=== PATIENT | male | born 1980 | race Hispanic/Latino ===

== ENCOUNTER 2019-03-10 20:53 | Emergency (ER) | payer SELFPAY ==
[2019-03-10] MEDS ORDERED: TETANUS & DIPHTHERIA TOX,ADULT 0.5 ML VIAL ONE (21:15)
[2019-03-10] MEDS ORDERED: SMZ./TMP. 800/160 MG TABLET ONE (22:08)
--- NOTE | 2019-03-10 22:09 | EDPHYS ---
Physician Documentation [facility] Name: Mando Dhaliwal Age: 38 yrs Sex: Male : 1980 Arrival Date: 03/10/2019 Time: 20:57 Bed 20 Private MD: ED Physician Eddy Villegas HPI: 03/10 21:15 This 38 yrs old Male presents to ER via Ambulatory with complaints of Leg cp Injury. 21:15 The patient presents with a laceration, irregular. cp 21:15 The complaints affect the left hill. cp 21:15 Onset: The symptoms/episode began/occurred 2 day(s) ago. Associated signs and symptoms: cp Pertinent positives: drainage from wound, Pertinent negatives fever, warmth. 21:15 Context: resulted from a direct blow, against metal frame of bed, the patient can fully cp bear weight, the patient is able to ambulate, with mild difficulty. Historical: - Allergies: 21:08 No Known Allergies; ea - Home Meds: 21:08 None [Active]; ea - PMHx: 21:08 Diabetes - NIDDM; ea - PSHx: 21:08 None; ea - Immunization history:: Adult Immunizations up to date. - Social history:: Smoking status: Patient/guardian denies using tobacco. - Ebola Screening: : No symptoms or risks identified at this time. ROS: 21:20 Skin: Positive for laceration(s), of the anterior aspect left lower leg. cp 21:20 Eyes: Negative for injury, pain, redness, and discharge. cp 21:20 Constitutional: Negative for body aches, chills, fever, poor PO intake. 21:20 Cardiovascular: Negative for chest pain. 21:20 Respiratory: Negative for cough, shortness of breath. 21:20 Abdomen/GI: Negative for abdominal pain. 21:20 Neuro: Negative for headache. 21:20 All other systems are negative. Exam: 21:25 Constitutional: The patient appears in no acute distress, alert, awake, well developed, cp well nourished. 21:25 Head/Face: Normocephalic, atraumatic. cp 21:25 Musculoskeletal/extremity: Extremities: grossly normal except: noted in the anterior aspect left lower leg: laceration, Perfusion: the extremity is normally perfused throughout, Sensation intact. 21:25 Skin: injury, laceration(s), the wound is approximately 3 cm(s), of the anterior aspect left lower leg, that can be described as no foreign body, irregular, without bleeding, noted clear drainage with erythema of wound edges. Vital Signs: 21:08 BP 137 / 92; Pulse 101; Resp 18; Temp 98.3; Pulse Ox 95% on R/A; Weight 68.04 kg; ea Height 5 ft. 5 in. (165.10 cm); 22:12 BP 130 / 90; Pulse 81; Resp 16 S; Pulse Ox 96% on R/A; ca1 21:08 Body Mass Index 24.96 (68.04 kg, 165.10 cm) ea MDM: 21:03 Patient medically screened. cp 22:08 Data reviewed: vital signs, nurses notes, radiologic studies, plain films. cp 22:08 Differential diagnosis: open fracture, cellulitis, infected laceration. Test cp interpretation: by ED physician or midlevel provider: xrays of left lower leg negative for fracture. Counseling: I had a detailed discussion with the patient and/or guardian regarding: the historical points, exam findings, and any diagnostic results supporting the discharge/admit diagnosis, radiology results, to return to the emergency department if symptoms worsen or persist or if there are any questions or concerns that arise at home. Response to treatment: the patient's symptoms have markedly improved after treatment. 03/10 21:15 Order name: XRAY Tib Fib LEFT cp 03/10 22:07 Order name: Wound dressing: clean and irrigate wound, dress with bacitracin; Complete cp Time: 22:11 Administered Medications: 21:19 Drug: Tetanus-Diphtheria Toxoid Adult 0.5 ml {Boat Crew Deck Hand: [employer]. Exp: ca1 11/01/2020. Lot #: [id number]. } Route: IM; Site: right deltoid; 22:06 Follow up: Response: No adverse reaction ca1 22:11 Drug: Bactrim (160 mg-800 mg (DS) 1 tablet Route: PO; ca1 22:14 Follow up: Response: Medication administered at discharge. ca1 Disposition: 03/11 10:48 Co-signature as Attending Physician, Eddy Villegas MD I agree with the assessment and tw4 plan of care. Disposition: 03/10/19 22:08 Discharged to Home. Impression: Open wound of lower leg - left. - Condition is Stable. - Discharge Instructions: Wound Infection, Wound Care. - Prescriptions for Bactrim DS 800- 160 mg Oral Tablet - take 1 tablet by ORAL route every 12 hours for 10 days; 20 tablet. - Medication Reconciliation Form, Thank You Letter, Antibiotic Education, Prescription Opioid Use, Work release form form. - Follow up: Private Physician; When: 2 - 3 days; Reason: Worsening of condition. - Problem is new. - Symptoms have improved. Signatures: Dispatcher [employer] EDMS Heber Esquivel PA PA cp Antunez, Elena, RN RN ea Eddy Villegas MD MD tw4 Savanah Ruelas RN RN ca1 Corrections: (The following items were deleted from the chart) 03/10 22:16 22:08 03/10/2019 22:08 Discharged to Home. Impression: Open wound of lower leg - left. ca1 Condition is Stable. Forms are Medication Reconciliation Form, Thank You Letter, Antibiotic Education, Prescription Opioid Use. Follow up: Private Physician; When: 2 - 3 days; Reason: Worsening of condition. Problem is new. Symptoms have improved. cp 03/11 21:09 03/10 21:15 Context: resulted from a direct blow, metal object, the patient can fully cp bear weight, the patient is able to ambulate, without difficulty, cp
--- NOTE | 2019-03-10 22:09 | ER ---
Nurse's Notes [facility] Name: Mando Dhaliwal Age: 38 yrs Sex: Male : 1980 Arrival Date: 03/10/2019 Time: 20:57 Bed 20 Private MD: Diagnosis: Open wound of lower leg-left Presentation: 03/10 21:05 Presenting complaint: Patient states: Reports he hit the bed frame two days ago with ea his left hill. Pt states "I am just concerned since I am diabetic that it may not heal right". Transition of care: patient was not received from another setting of care. Onset of symptoms was March 10, 2019. Risk Assessment: Do you want to hurt yourself or someone else? Patient reports no desire to harm self or others. Initial Sepsis Screen: Does the patient meet any 2 criteria? No. Patient's initial sepsis screen is negative. Does the patient have a suspected source of infection? No. Patient's initial sepsis screen is negative. Care prior to arrival: pt reports he has been cleaning the wound and wrapping it. 21:05 Method Of Arrival: Ambulatory ea 21:05 Acuity: ADEN 4 ea Triage Assessment: 21:09 General: Appears in no apparent distress. Behavior is calm, cooperative, appropriate ea for age. Pain: Complains of pain in right hill. Musculoskeletal: Circulation, motion, and sensation intact. Historical: - Allergies: 21:08 No Known Allergies; ea - Home Meds: 21:08 None [Active]; ea - PMHx: 21:08 Diabetes - NIDDM; ea - PSHx: 21:08 None; ea - Immunization history:: Adult Immunizations up to date. - Social history:: Smoking status: Patient/guardian denies using tobacco. - Ebola Screening: : No symptoms or risks identified at this time. Screenin:07 Abuse screen: Denies threats or abuse. Nutritional screening: No deficits noted. ea Tuberculosis screening: No symptoms or risk factors identified. Fall Risk None identified. Assessment: 21:12 General: Appears in no apparent distress. comfortable, Behavior is calm, cooperative, ca1 appropriate for age. Pain: Complains of pain in right leg and right hill Pain currently is 5 out of 10 on a pain scale. Pain began 5 days ago. Neuro: Level of Consciousness is awake, alert, obeys commands, Oriented to person, place, time, situation, Appropriate for age. Cardiovascular: Heart tones S1 S2 present Capillary refill < 3 seconds Patient's skin is warm and dry. Respiratory: Airway is patent Respiratory effort is even, unlabored, Respiratory pattern is regular, symmetrical, Breath sounds are clear bilaterally. GI: Abdomen is round non-distended, Bowel sounds present X 4 quads. Abd is soft and non tender X 4 quads. : No deficits noted. No signs and/or symptoms were reported regarding the genitourinary system. EENT: No deficits noted. No signs and/or symptoms were reported regarding the EENT system. Derm: Skin is healthy with good turgor, Skin is pink, warm \\T\\ dry. Musculoskeletal: Circulation, motion, and sensation intact. Capillary refill < 3 seconds, Range of motion: intact in all extremities. Injury Description: Laceration sustained to right hill is 2.6 to 7.5 cm long, not bleeding, was sustained 5 days no active bleeding noted at this time. A dressing was applied. 22:06 Reassessment: Patient appears in no apparent distress at this time. Patient and/or ca1 family updated on plan of care and expected duration. Pain level reassessed. Patient is alert, oriented x 3, equal unlabored respirations, skin warm/dry/pink. Vital Signs: 21:08 BP 137 / 92; Pulse 101; Resp 18; Temp 98.3; Pulse Ox 95% on R/A; Weight 68.04 kg; ea Height 5 ft. 5 in. (165.10 cm); 22:12 BP 130 / 90; Pulse 81; Resp 16 S; Pulse Ox 96% on R/A; ca1 21:08 Body Mass Index 24.96 (68.04 kg, 165.10 cm) ea ED Course: 20:57 Patient arrived in ED. ag3 21:00 Heber Esquivel PA is PHCP. cp 21:00 Eddy Villegas MD is Attending Physician. cp 21:07 Triage completed. ea 21:07 Arm band placed on right wrist. Patient placed in an exam room, on a stretcher, on ea pulse oximetry. 21:07 Patient has correct armband on for positive identification. Bed in low position. Call ea light in reach. Side rails up X2. 21:09 Savanah Ruelas, RN is Primary Nurse. ca1 22:06 XRAY Tib Fib LEFT In Process Unspecified. EDMS 22:06 Pulse ox on. NIBP on. ca1 22:11 No provider procedures requiring assistance completed. Patient did not have IV access ca1 during this emergency room visit. Wound care: to laceration located on right hill was cleaned with Hibiclens, irrigated with normal saline, dressed with 4X4s, Aaron wrapped Patient tolerated well. Administered Medications: 21:19 Drug: Tetanus-Diphtheria Toxoid Adult 0.5 ml {Retail Merchandiser Technician: [employer]. Exp: ca1 11/01/2020. Lot #: [id number]. } Route: IM; Site: right deltoid; 22:06 Follow up: Response: No adverse reaction ca1 22:11 Drug: Bactrim (160 mg-800 mg (DS) 1 tablet Route: PO; ca1 22:14 Follow up: Response: Medication administered at discharge. ca1 Outcome: 22:08 Discharge ordered by MD. cp 22:16 Discharged to home ambulatory, with family. ca1 22:16 Condition: stable 22:16 Discharge instructions given to patient, Instructed on discharge instructions, follow up and referral plans. medication usage, wound care, Demonstrated understanding of instructions, follow-up care, medications, wound care, Prescriptions given X 1. 22:16 Patient left the ED. ca1 Signatures: Dispatcher [employer] EDNV Heber Esquivel PA PA cp Antunez, Elena, RN Soila Gtz ea ag3 Savanah Ruelas RN RN ca1
[2019-03-11 01:00] VITALS: TEMP 98.3
[2019-03-11 01:04] VITALS: BP 130/90; O2SAT 96
--- NOTE | 2019-03-11 08:28 | RAD REPORT ---
EXAM DESCRIPTION: RAD - Tib Fib Left - 03/10/2019 10:05 pm CLINICAL HISTORY: Leg pain, soft tissue laceration COMPARISON: None. FINDINGS: No fracture is identified. There is no dislocation or periosteal reaction noted. No acute or suspicious bony finding. No foreign body or other soft tissue abnormality. IMPRESSION: Negative left tibia & fibula examination.
== END 2019-03-10 22:16 | disposition home or self-care (01) ==
LOC: ER 20:53
DX: S81.802A Unspecified open wound, left lower leg, initial encounter (principal); W22.03XA Walked into furniture, initial encounter; Y93.9 Activity, unspecified; Y92.9 Unspecified place or not applicable; Z23 Encounter for immunization; E11.9 Type 2 diabetes mellitus without complications
CPT/HCPCS: 90714

== ENCOUNTER 2019-03-24 06:17 | Emergency (ER) | payer SELFPAY ==
[2019-03-24] MEDS ORDERED: SMZ./TMP. 800/160 MG TABLET ONE (06:40)
--- NOTE | 2019-03-24 06:42 | ER ---
Nurse's Notes [facility] Name: Mando Dhaliwal Age: 38 yrs Sex: Male : 1980 Arrival Date: 03/24/2019 Time: 06:18 Bed 6 Private MD: Diagnosis: Unspecified open wound of lower leg-left Presentation: 03/24 06:34 Presenting complaint: Patient states: he has a small healing laceration to anterior bb aspect of left lower leg which is not healing and has some clear discharge and is painful. Transition of care: patient was not received from another setting of care. Onset of symptoms was March 24, 2019. Risk Assessment: Do you want to hurt yourself or someone else? Patient reports no desire to harm self or others. Initial Sepsis Screen: Does the patient meet any 2 criteria? No. Patient's initial sepsis screen is negative. Does the patient have a suspected source of infection? No. Patient's initial sepsis screen is negative. Care prior to arrival: None. 06:34 Method Of Arrival: Ambulatory bb 06:34 Acuity: ADEN 4 bb Historical: - Allergies: 06:35 No Known Allergies; bb - Home Meds: 06:35 None [Active]; bb - PMHx: 06:35 Diabetes - NIDDM; bb - PSHx: 06:35 None; bb - Immunization history:: Adult Immunizations up to date. - Social history:: Smoking status: Patient/guardian denies using tobacco. - Ebola Screening: : No symptoms or risks identified at this time. Screenin:36 Abuse screen: Denies threats or abuse. Nutritional screening: No deficits noted. bb Tuberculosis screening: No symptoms or risk factors identified. Fall Risk None identified. Assessment: 06:36 General: Appears in no apparent distress. Behavior is calm, cooperative. Pain: bb Complains of pain in left hill Pain currently is 7 out of 10 on a pain scale. Neuro: Level of Consciousness is awake, alert, obeys commands, Oriented to person, place, time, situation. Cardiovascular: No deficits noted. Respiratory: Respiratory effort is even, unlabored. GI: No deficits noted. No signs and/or symptoms were reported involving the gastrointestinal system. Derm: Wound noted left hill Wound is healing with clear yellow discharge. Vital Signs: 06:35 BP 124 / 97; Pulse 90; Resp 16 S; Temp 97.8(O); Pulse Ox 98% on R/A; Weight 117.93 kg bb (R); Height 5 ft. 5 in. (165.10 cm) (R); Pain 7/10; 06:35 Body Mass Index 43.27 (117.93 kg, 165.10 cm) raffaele ED Course: 06:18 Patient arrived in ED. am2 06:26 [facility]C [facility]. kb 06:26 Robin Dobson MD is Attending Physician. kb 06:35 Triage completed. bb 06:35 Arm band placed on Patient placed in an exam room, on a stretcher, on pulse oximetry. bb Family accompanied patient. 06:36 Patient has correct armband on for positive identification. Bed in low position. Call bb light in reach. Side rails up X 1. Adult w/ patient. Pulse ox on. NIBP on. 06:36 No provider procedures requiring assistance completed. Patient did not have IV access bb during this emergency room visit. 06:48 Wound care: was cleaned with dressed with Neosporin, 4X4s, band aid. bb Administered Medications: 06:42 Drug: Bactrim (160 mg-800 mg (DS) 1 tablet Route: PO; bb 06:49 Follow up: Response: No adverse reaction bb Outcome: 06:39 Discharge ordered by . kb 06:50 Discharged to home ambulatory, with family. bb 06:50 Condition: stable 06:50 Discharge instructions given to patient, Instructed on discharge instructions, follow up and referral plans. medication usage, wound care, Demonstrated understanding of instructions, follow-up care, medications, wound care, Prescriptions given X 1. 06:50 Patient left the ED. bb Addendum: 03/27/2019 14:42 Addendum: Culture Results: Positive wound culture. No further action required. Bacteria a a5 sensitive to prescribed antibiotic. Signatures: Adele Jackson FNP-C FNP-Ckb Ballard, Brenda RN RN Magalie Alexandra RN RN bia5 Susanne Villalba am2
--- NOTE | 2019-03-24 06:44 | EDPHYS ---
Physician Documentation [facility] Name: Mando Dhaliwal Age: 38 yrs Sex: Male : 1980 Arrival Date: 03/24/2019 Time: 06:18 Bed 6 Private MD: ED Physician Robin Dobson HPI: 03/24 06:35 This 38 yrs old Male presents to ER via Unassigned with complaints of Wound kb Infection. 06:35 The patient presents with an injury, pain, tenderness. The complaints affect the left kb hill. Context: The problem was sustained at home, resulted from a direct blow, hit leg on bed frame, the patient can fully bear weight, the patient is able to ambulate, without difficulty, Problem is a result from a previous injury: No. Onset: The symptoms/episode began/occurred 2 week(s) ago. Modifying factors: The symptoms are alleviated by nothing. the symptoms are aggravated by nothing. Associated signs and symptoms: The patient has no apparent associated signs or symptoms. Treatment prior to arrival includes: taking ampicillin from [place] since yesterda. Severity of symptoms: At their worst the symptoms were mild, in the emergency department the symptoms are unchanged. The patient has not experienced similar symptoms in the past. The patient has been recently seen at the [facility] Emergency Department. Pt reports he has had the wound for 2 weeks. States it is healing, but continues to drain clear fluid every day. Has been cleaning it with hydrogen peroxide daily and started taking ampicillin from [place] yesterday. . Historical: - Allergies: 06:35 No Known Allergies; bb - Home Meds: 06:35 None [Active]; bb - PMHx: 06:35 Diabetes - NIDDM; bb - PSHx: 06:35 None; bb - Immunization history:: Adult Immunizations up to date. - Social history:: Smoking status: Patient/guardian denies using tobacco. - Ebola Screening: : No symptoms or risks identified at this time. ROS: 06:33 Constitutional: Negative for fever, chills, and weight loss, Cardiovascular: Negative kb for chest pain, palpitations, and edema, Respiratory: Negative for shortness of breath, cough, wheezing, and pleuritic chest pain, Abdomen/GI: Negative for abdominal pain, nausea, vomiting, diarrhea, and constipation, MS/Extremity: Negative for injury and deformity, Neuro: Negative for headache, weakness, numbness, tingling, and seizure. 06:33 Skin: Positive for open wound to left hill. Exam: 06:33 Constitutional: This is a well developed, well nourished patient who is awake, alert, kb and in no acute distress. Head/Face: Normocephalic, atraumatic. Neck: Trachea midline, no thyromegaly or masses palpated, and no cervical lymphadenopathy. Supple, full range of motion without nuchal rigidity, or vertebral point tenderness. No Meningismus. Chest/axilla: Normal chest wall appearance and motion. Nontender with no deformity. No lesions are appreciated. Cardiovascular: Regular rate and rhythm with a normal S1 and S2. No gallops, murmurs, or rubs. Normal PMI, no JVD. No pulse deficits. Respiratory: Lungs have equal breath sounds bilaterally, clear to auscultation and percussion. No rales, rhonchi or wheezes noted. No increased work of breathing, no retractions or nasal flaring. Abdomen/GI: Soft, non-tender, with normal bowel sounds. No distension or tympany. No guarding or rebound. No evidence of tenderness throughout. MS/ Extremity: Pulses equal, no cyanosis. Neurovascular intact. Full, normal range of motion. Neuro: Awake and alert, GCS 15, oriented to person, place, time, and situation. Cranial nerves II-XII grossly intact. Motor strength 5/5 in all extremities. Sensory grossly intact. Cerebellar exam normal. Normal gait. 06:33 Skin: Wound recheck: Unrepaired laceration: no swelling, mild discharge, mild erythema. Vital Signs: 06:35 BP 124 / 97; Pulse 90; Resp 16 S; Temp 97.8(O); Pulse Ox 98% on R/A; Weight 117.93 kg bb (R); Height 5 ft. 5 in. (165.10 cm) (R); Pain 7/10; 06:35 Body Mass Index 43.27 (117.93 kg, 165.10 cm) bb MDM: 06:26 Patient medically screened. kb 06:33 Data reviewed: vital signs, nurses notes. Data interpreted: Pulse oximetry: on room air kb is 100 %. Interpretation: normal. Counseling: I had a detailed discussion with the patient and/or guardian regarding: the historical points, exam findings, and any diagnostic results supporting the discharge/admit diagnosis, the need for outpatient follow up, a family practitioner, to return to the emergency department if symptoms worsen or persist or if there are any questions or concerns that arise at home. 06:37 ED course: Educated to stop ampicillin and not to clean wound with hydrogen peroxide. kb Gave a bottle of hibiclense to pt for cleaning and will prescribe bactrim. 03/24 06:30 Order name: Wound Culture otoniel Administered Medications: 06:42 Drug: Bactrim (160 mg-800 mg (DS) 1 tablet Route: PO; bb 06:49 Follow up: Response: No adverse reaction bb Disposition: 06:57 Co-signature as Attending Physician, Robin Dobson MD. rn Disposition: 03/24/19 06:39 Discharged to Home. Impression: Unspecified open wound of lower leg - left. - Condition is Stable. - Discharge Instructions: Wound Infection, Foak-rp-Woce. - Prescriptions for Bactrim DS 800- 160 mg Oral Tablet - take 1 tablet by ORAL route every 12 hours for 7 days; 14 tablet. - Medication Reconciliation Form, Thank You Letter, Antibiotic Education, Prescription Opioid Use form. - Follow up: Emergency Department; When: As needed; Reason: Worsening of condition. Follow up: Private Physician; When: 2 - 3 days; Reason: Recheck today's complaints, Continuance of care, Re-evaluation by your physician. Signatures: Dispatcher [employer] EDMS Adele Jackson, ZACH-C SALES PERFORMANCE MANAGER-Karine Mackey RN RN Robin Tripathi MD MD yarn cleaner: (The following items were deleted from the chart) 06:50 06:39 03/24/2019 06:39 Discharged to Home. Impression: Unspecified open wound of lower bb leg - left. Condition is Stable. Forms are Medication Reconciliation Form, Thank You Letter, Antibiotic Education, Prescription Opioid Use. Follow up: Emergency Department; When: As needed; Reason: Worsening of condition. Follow up: Private Physician; When: 2 - 3 days; Reason: Recheck today's complaints, Continuance of care, Re-evaluation by your physician. kb
[2019-03-24 06:56] VITALS: BP 124/97; TEMP 97.8; O2SAT 98
== END 2019-03-24 06:50 | disposition home or self-care (01) ==
LOC: ER 06:17
DX: S81.802A Unspecified open wound, left lower leg, initial encounter (principal); W22.8XXA Striking against or struck by other objects, initial encounter; Y93.89 Activity, other specified; Y92.89 Other specified places as the place of occurrence of the external cause
CPT/HCPCS: 87070; 87077; 87186; 87205; 99284

== ENCOUNTER 2019-05-09 19:25 | Emergency (ER) | payer SELFPAY ==
[2019-05-09] MEDS ORDERED: TETRACAINE HCL 0.5% 4ML OPTH ONE (20:09)
[2019-05-09] MEDS ORDERED: FLUORESCEIN SODIUM 1 MG/WRAP ONE (20:10)
--- NOTE | 2019-05-09 20:56 | ER ---
Nurse's Notes [facility] Name: Mando Dhaliwal Age: 39 yrs Sex: Male : 1980 Arrival Date: 05/09/2019 Time: 19:29 Bed 27 Private MD: Diagnosis: Conjunctivitis;Allergic rhinitis, unspecified Presentation: 05/09 19:37 Presenting complaint: Patient states: redness, burning to bilateral eyes X1.5 weeks. pt ak1 c/o green discharge intermittent from bilateral eyes. pt c/o runny nose. pt stated he has tried 3 OTC medications in the past 1.5 weeks with no constant relief. Transition of care: patient was not received from another setting of care. Onset: The symptoms/episode began/occurred last week. Anaphylaxis evaluation, no signs or symptoms of anaphylaxis were noted. Onset of symptoms is unknown. Risk Assessment: Do you want to hurt yourself or someone else? Patient reports no desire to harm self or others. Initial Sepsis Screen: Does the patient meet any 2 criteria? No. Patient's initial sepsis screen is negative. Does the patient have a suspected source of infection? No. Patient's initial sepsis screen is negative. Care prior to arrival: None. 19:37 Method Of Arrival: Ambulatory ak1 19:37 Acuity: ADEN 4 ak1 Triage Assessment: 19:39 General: Appears uncomfortable, Behavior is calm, cooperative. ak1 Historical: - Allergies: 19:39 No Known Allergies; ak1 - Home Meds: 19:39 None [Active]; ak1 - PMHx: 19:39 Diabetes - NIDDM; ak1 - PSHx: 19:39 None; ak1 - Immunization history:: Adult Immunizations unknown. - Social history:: Smoking status: Patient/guardian denies using tobacco. - Ebola Screening: : No symptoms or risks identified at this time. Screenin:21 Abuse screen: Denies threats or abuse. Nutritional screening: No deficits noted. fu Tuberculosis screening: No symptoms or risk factors identified. Fall Risk None identified. Assessment: 20:10 General: Appears uncomfortable, Behavior is calm, cooperative, Denies fever, feeling fu ill, fatigue, chills. Pain: Complains of pain in bilateral eyes Pain does not radiate. Pain currently is 6 out of 10 on a pain scale. Pain began 1.5 weeks ago. Neuro: Level of Consciousness is awake, alert, obeys commands, Oriented to person, place, time, situation, Back Tender Cylinder are equal bilaterally Moves all extremities. Full function Gait is steady, Speech is normal, Facial symmetry appears normal, Pupils are PERRLA. Cardiovascular: Denies chest pain, Capillary refill < 3 seconds Pulses are all present. Respiratory: Airway is patent Respiratory effort is even, unlabored. EENT: Eyes are tearing on both eyes Sclera/Cornea are reddened in bilaterally. EENT: Reports burning sensation to both eyes. Derm: No signs and/or symptoms reported regarding the dermatologic system. Musculoskeletal: No signs and/or symptoms reported regarding the musculoskeletal system. 21:00 Reassessment: Patient appears in no apparent distress at this time. No changes from fu previously documented assessment. 21:01 Respiratory: Breath sounds are clear bilaterally. fu Vital Signs: 19:37 BP 131 / 101; Pulse 104; Resp 18; Temp 97.8; Pulse Ox 97% on R/A; Weight 117.93 kg (R); ak1 Height 5 ft. 5 in. (165.10 cm) (R); Pain 3/10; 20:42 BP 118 / 99; Pulse 102; Resp 18; Temp 98.4; Pulse Ox 100% ; Pain 6/10; fu 19:37 Body Mass Index 43.27 (117.93 kg, 165.10 cm) ak1 ED Course: 19:29 Patient arrived in ED. es 19:39 Triage completed. ak1 19:39 Arm band placed on Patient placed in an exam room, on a stretcher, Patient notified of ak1 wait time. 19:40 Flaca Roe FNP-C is PHCP. snw 19:40 Fred Malik MD is Attending Physician. snw 20:34 Ferny Li, AMNA is Primary Nurse. fu 21:21 Patient has correct armband on for positive identification. Bed in low position. Call fu light in reach. 21:22 Patient did not have IV access during this emergency room visit. fu Administered Medications: 21:00 Drug: Tetracaine Drops 0.5 % 1 drops Route: Ophthalmic; Site: both eyes; fu 21:14 Drug: Decadron 10 mg Route: IM; Site: right gluteus; fu 21:14 Drug: ToBREx Drops (0.3 %) 2 drops Route: Ophthalmic; Site: both eyes; fu Outcome: 20:55 Discharge ordered by . tae 21:40 Discharged to home ambulatory. fu 21:40 Condition: stable 21:40 Discharge instructions given to patient, Instructed on discharge instructions, Demonstrated understanding of instructions, medications, Prescriptions given X 2. 21:40 Patient left the ED. fu Signatures: Flaca Roe, MICROSCOPIST-C MICROSCOPIST-Csnw Ela Samaniego Amber, RN RN ak1 Ferny Li RN RN
--- NOTE | 2019-05-09 20:56 | EDPHYS ---
Physician Documentation [facility] Name: Mando Dhaliwal Age: 39 yrs Sex: Male : 1980 Arrival Date: 05/09/2019 Time: 19:29 Bed 27 Private MD: ED Physician Fred Malik HPI: 05/09 21:12 This 39 yrs old Male presents to ER via Ambulatory with complaints of Allergy snw Symptoms. 21:12 Onset: The symptoms/episode began/occurred suddenly, 2 week(s) ago, and became snw persistent. Associated signs and symptoms: Pertinent positives: congestion, nasal discharge, watery, itchy, matting eyes. The patient has experienced similar episodes in the past. It is unknown whether or not the patient has recently seen a physician. no fever. Historical: - Allergies: 19:39 No Known Allergies; ak1 - Home Meds: 19:39 None [Active]; ak1 - PMHx: 19:39 Diabetes - NIDDM; ak1 - PSHx: 19:39 None; ak1 - Immunization history:: Adult Immunizations unknown. - Social history:: Smoking status: Patient/guardian denies using tobacco. - Ebola Screening: : No symptoms or risks identified at this time. ROS: 21:11 Constitutional: Negative for fever, chills, and weight loss, Neck: Negative for injury, snw pain, and swelling, Cardiovascular: Negative for chest pain, palpitations, and edema, Respiratory: Negative for shortness of breath, cough, wheezing, and pleuritic chest pain, Abdomen/GI: Negative for abdominal pain, nausea, vomiting, diarrhea, and constipation, Back: Negative for injury and pain, : Negative for injury, bleeding, discharge, and swelling, MS/Extremity: Negative for injury and deformity, Skin: Negative for injury, rash, and discoloration, Neuro: Negative for headache, weakness, numbness, tingling, and seizure. 21:11 Eyes: Positive for discharge, itching, matting, redness, tearing, of the outer aspect of conjuctiva of right eye, inner aspect of conjuctiva of right eye, outer aspect of conjuctiva of left eye and inner aspect of conjunctiva of left eye. 21:11 ENT: Positive for nasal discharge, sinus congestion. Exam: 21:08 Constitutional: This is a well developed, well nourished patient who is awake, alert, snw and in no acute distress. Head/Face: Normocephalic, atraumatic. ENT: Nares patent. + nasal discharge, mucosa edematous, no septal abnormalities noted. Tympanic membranes are normal and external auditory canals are clear. Oropharynx with no redness, swelling, or masses, exudates, or evidence of obstruction, uvula midline. Mucous membranes moist. Neck: Trachea midline, no thyromegaly or masses palpated, and no cervical lymphadenopathy. Supple, full range of motion without nuchal rigidity, or vertebral point tenderness. No Meningismus. Chest/axilla: Normal chest wall appearance and motion. Nontender with no deformity. No lesions are appreciated. Cardiovascular: Regular rate and rhythm with a normal S1 and S2. No gallops, murmurs, or rubs. Normal PMI, no JVD. No pulse deficits. Respiratory: Lungs have equal breath sounds bilaterally, clear to auscultation and percussion. No rales, rhonchi or wheezes noted. No increased work of breathing, no retractions or nasal flaring. Abdomen/GI: Soft, non-tender, with normal bowel sounds. No distension or tympany. No guarding or rebound. No evidence of tenderness throughout. Back: No spinal tenderness. No costovertebral tenderness. Full range of motion. Skin: Warm, dry with normal turgor. Normal color with no rashes, no lesions, and no evidence of cellulitis. MS/ Extremity: Pulses equal, no cyanosis. Neurovascular intact. Full, normal range of motion. Neuro: Awake and alert, GCS 15, oriented to person, place, time, and situation. Cranial nerves II-XII grossly intact. Motor strength 5/5 in all extremities. Sensory grossly intact. Cerebellar exam normal. Normal gait. Psych: Awake, alert, with orientation to person, place and time. Behavior, mood, and affect are within normal limits. 21:08 Eyes: Periorbital structures: appear normal, Pupils: no acute changes, Extraocular movements: intact throughout, Conjunctiva: injected, bilaterally, Corneas: no acute changes, no evidence of abrasion, no foreign body, a fluorescein strip employed to appreciate the findings, scarring noted to lateral aspect of cornea at right eye. Vital Signs: 19:37 BP 131 / 101; Pulse 104; Resp 18; Temp 97.8; Pulse Ox 97% on R/A; Weight 117.93 kg (R); ak1 Height 5 ft. 5 in. (165.10 cm) (R); Pain 3/10; 20:42 BP 118 / 99; Pulse 102; Resp 18; Temp 98.4; Pulse Ox 100% ; Pain 6/10; fu 19:37 Body Mass Index 43.27 (117.93 kg, 165.10 cm) ak1 MDM: 20:05 Patient medically screened. snw 21:09 Data reviewed: vital signs, nurses notes. Data interpreted: Pulse oximetry: on room air snw is 100 %. Interpretation: normal. Counseling: I had a detailed discussion with the patient and/or guardian regarding: the historical points, exam findings, and any diagnostic results supporting the discharge/admit diagnosis, the presence of at least one elevated blood pressure reading (>120/80) during this emergency department visit, the need for outpatient follow up, to return to the emergency department if symptoms worsen or persist or if there are any questions or concerns that arise at home, pt has been taking Loratadine/Sudafed combo x 1-2 weeks. Response to treatment: the patient's symptoms have mildly improved after treatment. Special discussion: Based on the history and exam findings, there is no indication for further emergent testing or inpatient evaluation. I discussed with the patient/guardian the need to see the opthamologist for further evaluation of the symptoms, I discussed with the patient/guardian the need to see the primary care provider for further evaluation of the symptoms. 05/09 19:52 Order name: Eye Tray; Complete Time: 21:23 snw 05/09 19:52 Order name: Fluoresene Opth strip; Complete Time: 21:23 snw Administered Medications: 21:00 Drug: Tetracaine Drops 0.5 % 1 drops Route: Ophthalmic; Site: both eyes; fu 21:14 Drug: Decadron 10 mg Route: IM; Site: right gluteus; fu 21:14 Drug: ToBREx Drops (0.3 %) 2 drops Route: Ophthalmic; Site: both eyes; fu Disposition: 05/10 06:11 Co-signature as Attending Physician, Fred Malik MD I agree with the assessment and kdr plan of care. Disposition: 05/09/19 20:55 Discharged to Home. Impression: Conjunctivitis, Allergic rhinitis, unspecified. - Condition is Stable. - Discharge Instructions: Bacterial Conjunctivitis, Nasal Allergies, Allergic Rhinitis, Hand Washing. - Prescriptions for Artificial Tears - instill 1 application by OPHTHALMIC route 2-4 times daily; 1 bottle. Vigamox 0.5 % Ophthalmic Drops - instill 1 drop by OPHTHALMIC route every 8 hours for 7 days; 5 milliliter. - Work release form, Medication Reconciliation Form, Thank You Letter, Antibiotic Education, Prescription Opioid Use form. - Follow up: Private Physician; When: 2 - 3 days; Reason: Recheck today's complaints, Continuance of care, Re-evaluation by your physician. Follow up: Emergency Department; When: As needed; Reason: Worsening of condition. Signatures: Fred Malik MD MD [facility] Flaca Roe, SILVERING DEPARTMENT SUPERVISOR-C SILVERING DEPARTMENT SUPERVISOR-Csnw Sharee Stanton RN RN ak Ferny Li RN RN fu Corrections: (The following items were deleted from the chart) 05/09 21:40 20:55 05/09/2019 20:55 Discharged to Home. Impression: Conjunctivitis; Allergic fu rhinitis, unspecified. Condition is Stable. Forms are Medication Reconciliation Form, Thank You Letter, Antibiotic Education, Prescription Opioid Use. Follow up: Private Physician; When: 2 - 3 days; Reason: Recheck today's complaints, Continuance of care, Re-evaluation by your physician. Follow up: Emergency Department; When: As needed; Reason: Worsening of condition. snw
[2019-05-09] MEDS ORDERED: dexAMETHasone 10 MG/ML VIAL ONE (21:05)
[2019-05-09] MEDS ORDERED: TOBRAMYCIN SULF 0.3% OPTH OINT ONE (21:07)
[2019-05-09 23:18] VITALS: BP 118/99; TEMP 98.4; O2SAT 100
== END 2019-05-09 21:40 | disposition home or self-care (01) ==
LOC: ER 19:25
DX: H10.9 Unspecified conjunctivitis (principal); J30.9 Allergic rhinitis, unspecified
CPT/HCPCS: 96372; 99283; J1100